=== PATIENT | female | born 1940 | race Caucasian/White ===

== ENCOUNTER 2017-10-29 10:30 | Outpatient (CLI) | payer OTHER | END 2017-10-29 18:56 | disposition home or self-care (01) | LOC: SMA 10:30 | PROVIDERS: ATTEND Family Medicine | DX: Z12.31 Encounter for screening mammogram for malignant neoplasm of breast (principal) | CPT/HCPCS: 77067 ==

== ENCOUNTER 2024-05-18 08:24 | Day surgery (SDC) | payer OTHER ==
[~2024-05-18] VITALS: Ht 142.2 cm; Wt 60.5 kg
[2024-05-18] MEDS: CEFAZOLIN SOD 2 GM in D5W 50 ML IV ONE (07:00)
[2024-05-18] MEDS ORDERED: DEXAMETHASONE SOD PHOSPHATE 4 MG/ML VIAL ONE (13:47)
[2024-05-18] MEDS ORDERED: LR 1,000 ML IV.SOLN IV ONE (13:47)
[2024-05-18] MEDS ORDERED: BUPIVACAINE /PF 0.25% 10 ML VIAL INJ ONE (13:47)
[2024-05-18] MEDS ORDERED: NS IRRIG SOLN 1000 ML IR ONE (13:47)
[2024-05-18] MEDS ORDERED: SEVOFLURANE 15 MIN GAS INH ONE (13:47)
[2024-05-18] MEDS ORDERED: PROPOFOL 200MG/ 20ML VIAL (DIPRIVAN) IV ONE (13:47)
[2024-05-18] MEDS ORDERED: KETOROLAC TROMETHAMINE 30 MG VIAL ONE (13:47)
[2024-05-18] MEDS: LR 1,000 ML IV ONE (15:00)
[2024-05-18] MEDS ORDERED: fentaNYL CITRATE/PF 100 MCG/2 ML AMP IVP PRN ×2 (15:00)
[2024-05-18] MEDS: fentaNYL CITRATE/PF 100 MCG/2 ML AMP ONE (15:06)
[2024-05-18] MEDS: ACETAMINOPHEN I.V. 1000 MG 100 ML IV ONE (15:06)
[2024-05-18] MEDS ORDERED: CHOL1CAP15 PO (17:12)
[2024-05-18] MEDS ORDERED: ESOM20CA PO (17:12)
[2024-05-18] MEDS ORDERED: FER300L PO (17:12)
[2024-05-18] MEDS ORDERED: LEVO25TA7 PO (17:12)
[2024-05-18] MEDS ORDERED: OMEG-158 PO (17:12)
[2024-05-18] MEDS ORDERED: SIMV-343 PO (17:12)
[2024-05-18] MEDS: ONDANSETRON HCL 4 MG/2 ML VIAL IVP PRN (18:27)
[2024-05-18] MEDS: HYDROmorphone 1 MG/ML INJ. CARTRIDGE IVP PRN (18:28)
[2024-05-18 18:36] VITALS: BP_SYST 123; PULSE 92; RESP 18; TEMP 97.7; O2SAT 96
[2024-05-18 20:00] VITALS: BP_SYST 112; PULSE 89; RESP 16; TEMP 97.8; O2SAT 99
[2024-05-18] MEDS ORDERED: ONDANSETRON HCL 4 MG/2 ML VIAL IVP PRN (20:30)
[2024-05-18] MEDS: D5NS 1,000 ML IV SCH (22:05)
[2024-05-19 00:22] VITALS: BP_SYST 104; PULSE 83; PULSE 96; RESP 17; TEMP 97.4; TEMP 98.4; O2SAT 100; O2SAT 94
[2024-05-19] MEDS: MORPHINE 4 MG INJ. 4 MG/ML VIAL IVP PRN (05:16)
[2024-05-19 06:54] LABS: BASOPHILS % (AUTO) 0.1 % (0.0-2.0); HEMATOCRIT 35.9 % (36-48); HEMOGLOBIN 11.9 g/dL (12.0-16.0); LYMPHOCYTES # (AUTO) 3.2 K/uL (1.0-5.5); MEAN CORPUSCULAR HEMOGLOBIN 28 pg (27-31); MEAN CORPUSCULAR HGB CONC 33 % (32-36); MEAN CORPUSCULAR VOLUME 85 fL (79.0-98.0); MONOCYTES # (AUTO) 0.6 K/uL (0.0-1.0); MONOCYTES % (AUTO) 5.4 % (1.7-9.3); NEUTROPHILS # (AUTO) 7.1 K/uL (1.8-7.7); NEUTROPHILS % (AUTO) 65.5 % (40.0-70.0); PLATELET COUNT (AUTO) 176 K/uL (130-430); RED BLOOD CELL COUNT(AUTO) 4.22 MIL/uL (4.2-6.2); RED CELL DISTRIBUTION WIDTH 14.5 % (9.0-15.0); WHITE BLOOD COUNT (AUTO) 10.9 K/uL (4.8-10.8)
[2024-05-19 07:49] LABS: ALANINE AMINOTRANSFERASE 18 U/L (12-78); ALBUMIN 3.4 g/dL (3.4-4.8); ANION GAP 10 (5-15); ASPARTATE AMINOTRANSFERASE 22 U/L (10-37); CALCIUM 8.8 mg/dL (8.4-11.0); CARBON DIOXIDE 26 mmol/L (23-29); CHLORIDE 107 mmol/L (98-107); GLUCOSE 120 mg/dL (74-106); POTASSIUM 3.9 mmol/L (3.5-5.1); SODIUM SERUM 143 mmol/L (136-145); TOTAL BILIRUBIN 0.4 mg/dL (0.0-1.0); UREA NITROGEN, BLOOD 11 mg/dL (8-21)
[2024-05-19 08:05] VITALS: BP_SYST 111; PULSE 76; RESP 15; TEMP 97.9; O2SAT 96
[2024-05-19 09:00] VITALS: O2SAT 96
[2024-05-19] MEDS ORDERED: ENOXAPARIN SODIUM 30 MG/0.3 ML SYRINGE SUBCUT SCH (09:00)
[2024-05-19] MEDS: ENOXAPARIN SODIUM 40 MG/0.4 ML SYRINGE SUBCUT SCH (09:06)
[2024-05-19] MEDS: HYDROcodone/ACETAMIN 5-325 MG TAB (NORCO/ VICODIN) PO PRN (11:11)
[2024-05-19 12:36] VITALS: BP_SYST 111; PULSE 76; RESP 16; TEMP 97.5; O2SAT 95
[2024-05-19 16:56] VITALS: BP_SYST 104; PULSE 75; RESP 18; TEMP 97.3; O2SAT 93
[2024-05-19 20:22] VITALS: BP_SYST 114; PULSE 82; RESP 16; TEMP 97.2; O2SAT 93
== END 2024-05-19 21:35 | disposition home or self-care (01) ==
LOC: SDS 08:24 → SMU 08:24 → SDS 05-19 21:35
PROVIDERS: ATTEND Surgery
DX: D05.11 Intraductal carcinoma in situ of right breast (principal); R92.1 Mammographic calcification found on diagnostic imaging of breast; D36.0 Benign neoplasm of lymph nodes; K21.9 Gastro-esophageal reflux disease without esophagitis; E78.5 Hyperlipidemia, unspecified; E03.9 Hypothyroidism, unspecified; G43.909 Migraine, unspecified, not intractable, without status migrainosus; M81.0 Age-related osteoporosis without current pathological fracture; Z79.890 Hormone replacement therapy; Z79.899 Other long term (current) drug therapy
CPT/HCPCS: 87081; 19303; 38525; 38900; 80053; 85025; 36415; 78195; 88307; 88309; 88341; 88342; A9541; J3490; J0690; J1100; J1885; J2405; J2704; J3010; J1171; J7042 ×2; J7060; J7120; J0131; J1650; J2270